=== PATIENT | male | born 1965 | race African-American/Black ===

== ENCOUNTER 2024-07-31 20:20 | Emergency (ER) | payer MEDICAID, OTHER ==
[~2024-07-31] VITALS: Ht 188 cm; Wt 128.8 kg
[2024-07-31] MEDS ORDERED: TDAP [DIPH/PERTUSSIS/TET] 0.5 ML VIAL IM ONE (21:57)
[2024-07-31] MEDS: TDAP [DIPH/PERTUSSIS/TET] 0.5 ML VIAL IM ONE (21:59)
[2024-07-31 22:09] VITALS: BP 125/87; TEMP 98.4; O2SAT 99
== END 2024-07-31 22:09 | disposition home or self-care (01) ==
LOC: ER 20:23
DX: S00.512A Abrasion of oral cavity, initial encounter (principal); E11.9 Type 2 diabetes mellitus without complications; X58.XXXA Exposure to other specified factors, initial encounter; Y93.89 Activity, other specified; Y92.098 Other place in other non-institutional residence as the place of occurrence of the external cause; Y99.8 Other external cause status
CPT/HCPCS: 90715